=== PATIENT | female | born 1945 | race Caucasian/White ===

== ENCOUNTER 2020-08-31 15:22 | Outpatient (CLI) | payer MEDICARE, SELFPAY ==
[2020-08-31 16:12] LABS: Add Urine Microscopic? YES; Appearance Urine Clear (Clear); Bacteria Urine Trace /hpf; Bilirubin Urine Negative (Negative); Blood Urine 1+ (Negative); Color Urine Straw (Yellow); Glucose Urine UA Negative (Negative); Ketones Urine Negative (Negative); Leukocyte Esterase Ur 2+ LEU/UL (Negative); Nitrate Urine Negative (Negative); Protein Urine Negative (Negative); RBC Urine 0-2 /hpf (0-2); Urobilinogen Urine Negative mg/dL (<2.0); WBC Urine 31-50 /hpf
[2020-08-31 16:15] LABS: Specific Grav Ur 1.004 (1.001-1.035)
== END 2020-08-31 15:23 | disposition home or self-care (01) ==
PROVIDERS: PCP Internal Medicine; Visit Provider Internal Medicine
DX: R30.0 Dysuria (principal)
CPT/HCPCS: 81001; 87077; 87086; 87088; 87186

== ENCOUNTER 2022-07-10 15:29 | Outpatient (CLI) | payer MEDICARE, SELFPAY ==
[2022-07-10 16:28] LABS: Appearance Urine Clear (Clear); Bilirubin Urine Negative (Negative); Blood Urine Negative (Negative); Color Urine Yellow (Yellow); Glucose Urine UA Negative (Negative); Ketones Urine Trace mg/dL (Negative); Leukocyte Esterase Ur Negative LEU/UL (Negative); Nitrate Urine Negative (Negative); Protein Urine Negative (Negative); Specific Grav Ur >= 1.030 (1.001-1.035); Urobilinogen Urine 0.2 mg/dL (<2.0); pH Urine 5.5 (5.0-9.0)
[2022-07-10 16:47] LABS: Bacteria Urine Trace /hpf; Mucus Urine Few /lpf; Squamous Epithelial Cell Urine Rare /hpf (Few)
[2022-07-10 16:52] LABS: Add Urine Microscopic? YES
== END 2022-07-10 15:30 | disposition home or self-care (01) ==
PROVIDERS: PCP Internal Medicine; Visit Provider Internal Medicine
DX: R30.0 Dysuria (principal)
CPT/HCPCS: 81001

== ENCOUNTER 2022-11-28 17:17 | Outpatient (CLI) | payer MEDICARE, SELFPAY ==
--- NOTE | ~2022-11-28 | CT_ITS ---
EXAMINATION: CT abdomen w con DATE: 11/28/2022 21:40 INDICATION: Other specified diseases of liver. TECHNIQUE: Computed tomography (CT) of the abdomen was performed with 100 mL Omnipaque 350 intravenou s contrast. Automated exposure control and iterative reconstruction technique were employed. The dose -length product was 638.83 mGy-cm. COMPARISON: None. FINDINGS: The visualized portions of the lung bases demonstrate mild atelectasis and mild chronic int erstitial lung disease. Calcified right hilar lymph nodes are consistent with old granulomatous disea se. No pleural effusion. The heart size is normal. There are coronary artery calcifications. No peric ardial effusion. There is a small sliding hiatal hernia. There is a 9 mm cyst in the liver. There is a gallstone in the gallbladder, which is normal in size. The spleen, pancreas, and adrenal glands are normal. There is cortical thinning of the kidneys. There is calcified atherosclerosis of the aorta a nd many of the other arteries. Partially visualized is a 3.2 cm cyst in left ovary. There are no path ologically enlarged lymph nodes. There is no free intraperitoneal fluid. There is severe thoracic and lumbar spondylosis. IMPRESSION: 1. Small sliding hiatal hernia. 2. Cholelithiasis. 3. Partially visualized 3.2 cm cyst in left ovary, likely benign. Pelvis ultrasound is recommended in one year. Reviewed, dictated and finalized at location A. IMPRESSION: 1. Small sliding hiatal hernia. 2. Cholelithiasis. 3. Partially visualized 3.2 cm cyst in left ovary, likely benign. Pelvis ultras ound is recommended in one year.
[2022-11-28 14:18] LABS: Estimated Glomerular Filt Rate 44
== END 2022-11-28 17:18 | disposition home or self-care (01) ==
LOC: ANHIMG 17:18
PROVIDERS: PCP Internal Medicine; Visit Provider Internal Medicine
DX: K44.9 Diaphragmatic hernia without obstruction or gangrene (principal); K80.20 Calculus of gallbladder without cholecystitis without obstruction; N83.202 Unspecified ovarian cyst, left side; K76.89 Other specified diseases of liver
CPT/HCPCS: 74160; Q9967

== ENCOUNTER 2023-01-30 13:30 | Outpatient (RCR) | payer MEDICARE, SELFPAY ==
--- NOTE | 2022-11-29 14:42 | PTOPEVAL1 ---
Assessment and note entered by Chasidy Calvo, PT Evaluation Information Assessment Status Evaluation Diagnosis weakness, falls Onset few years Subjective Information have fallen 2x in past 6 months, just walking in kitchen and fell down; not sure why she fell; have low back pain, walking is limited to about less than 1 block; use a cane sometimes and the shopping cart to lean on; do not use the motorized scooters--try to do as much as I can; tire easily with doing things; do not do any exercises or fitness activities; is able to do her own self care, home chores; is helping to care for her ill cousin-- fix meals, drive her, does not do any physical care for her; Reported Pain Level Pain Score Self Report Additional Pain Score Comments when first wake up in AM and trying to get breakfast, legs go numb and have to sit down, 07/27 Assessment PT Clinical Summary Sofia has the diagnosis of weakness, abnormality of gait and balance. She reports 2 falls in the past 6 months. Her history includes chronic back pain, sciatica into both legs with numbness, which limits her walking and bilateral TKR. She uses a cane PRN. With the evaluation: she has weakness of trunk and LE's, with L slightly weaker than R leg; Cai balance score of 49/56 and 2 minute walking test distance of 330' with increased back pain and SOB. Discussed aquatic exercises with her and she is not interested in them--stated have done in the past and made her back hurt more. Skilled PT services are indicated for therapeutic exercises and activities to increase trunk and LE strength, gait and balance skills, to improve safety and mobility, for decreased risk for falls, and education for home exercise program and safety with mobility. Plan to monitor her back pain during sessions. She may benefit from a wheeled walker for distances. Plan of Care Interventions Gait Training,Neuro Re-education,Patient Education,Therapeutic Activities,Therapeutic Exercise PT Services Indicated Yes Treatment Frequency and 2x/wk for 4 weeks Duration These treatments will address the objective and functional deficits as defined above. Th
--- NOTE | 2022-12-17 13:19 | PCPTNOTE ---
Pt. canceled 12/17/22 appointment but did not provide reason.
--- NOTE | 2022-12-27 13:47 | PTOPPROG ---
Assessment and note entered by Chasidy Calvo, PT Evaluation Information Assessment Status Progress Diagnosis weakness, falls Onset few years Subjective Information Sofia reports: feels like she is stronger, but balance is still a little off; have lost balance a few times, but not fallen; wobbly and not sure on steps, does not have any at home, but when go somewhere, is cautious and likes to have 2 hand rails; use cane as needed, but not using the walker at all--do not want to get dependent on it; having a bad day today-- did not sleep well last night, back and legs hurt today; wants to continue therapy to get stronger in legs and trunk and get balance better. Assessment PT Clinical Summary Sofia has received 8 PT sessions. Compared to the initial evaluation, she has improved with: time for 5 reps sit/stand, 2 minute walk test by 45'; Cai balance score is 54/ 56; leg strength with mat and single leg standing time-- both legs; she has concern over stairs and prefers to have 2 hand rails, which are not always available in the community. Back, leg and knee pain do limit her activity level. Education for home exercise program and safety with mobility. The goals were achieved, except R hip abduction strength due to R hip and leg pain. And 2 min walk distance. Continue treatment to further increase her trunk and LE strength, gait, stair and dynamic balance. Plan of Care Interventions Gait Training,Neuro Re-education,Patient Education,Therapeutic Activities,Therapeutic Exercise PT Services Indicated Yes Treatment Frequency and 1x/wk for 5 weeks Duration These treatments will address the objective and functional deficits as defined above. The patient will be advanced safely and appropriately in order for the patient to progress towards his/her prior level of function. Additional exercises will be introduced and as well as a comprehensive home exercise program upon discharge, if needed, ?to ensure carryover of functional gains achieved in the clinic. This treatment plan has been reviewed and agreement upon by the patient.
--- NOTE | 2022-12-28 08:17 | OPREHPOC ---
Outpatient Therapy Plan of Care This is a Multidisciplinary Plan of Care that may contain components documented by all disciplines (PT, OT, and ST.) PT Problem 1 PT Problem #1 Knowledge Deficit PT Goal 1 Goal 1* indep with home exercise program 2* good safety awareness with mobility 3* mobility device training as needed-- ? need wheeled walker for distances Progress Met Comment 12-27-22 progress met goals continue towards goals to advance educatoin PT Problem 2 PT Problem #2 Impaired Strength PT Goal 1 Goal pt perform 20 reps 1* supine bridge 2* side lying R hip abduction to 10' 3* side lying L hip abduction to 10' single leg standing 10 sec with good stability 4* R 5* L Progress Partially Met Comment 12-27-22 progress met goals except #2- due to back and leg pain, 14 reps NEW GOALS: 1* single leg standing R 25 seconds 2* single leg standing L 25 seconds 3* side lying hip abduction R 20 reps PT Problem 3 PT Problem #3 Impaired Functional Mobil PT Goal 1 Goal 1* Aci balance score improve to 52/56 2* 2 minute walking test distance of 400' 3* 5 reps sit/stand time of 18 seconds, without use of UE's Progress Partially Met Comment 12-27-22 progress met goals 1,3; improved iwth #2 to 375' NEW GOALS: 1* 2 minute walking test distance of 400' 2* up/down 4 steps with alternating step pattern, forward body position and 1 hand rail, with pt report feel comfortable doing stairs
--- NOTE | 2023-01-30 14:12 | PTOPDC ---
Assessment and note entered by Chasidy Calvo, PT Evaluation Information Assessment Status Discharge Diagnosis weakness, falls Onset few years Subjective Information she reports: not as tipsy as before, better stamina, is doing all the exercises at home; no falls; has not used the cane or walker the past few weeks; is back to her usual activities; feel like ready to be finished with therapy; Reported Pain Level Pain Score 2: Self Report Assessment PT Clinical Summary Yumiko has received 13 PT sessions. Compared to the last reevaluation: she has improved in all areas: strength of R and L LE, balance with single leg standing time, ability on stairs--now can do alternating step pattern without the railing, 2 minute walking test distance by 45'; indep with HEP and good safety awareness. She continues to have back and posterior leg pain and SOB. The goals were achieved. Discussed fitness center to continue with exercises. Discharge PT services. Plan of Care PT Services Indicated No
== END 2023-01-30 15:30 | disposition home or self-care (01) ==
LOC: ANHPT 13:30
PROVIDERS: PCP Internal Medicine; Visit Provider Internal Medicine
DX: R53.1 Weakness (principal); R26.89 Other abnormalities of gait and mobility
CPT/HCPCS: 97110; 97161; 97530